=== PATIENT | male | born 1990 ===

== ENCOUNTER 2019-01-14 17:00 | Emergency (ER) | payer MEDICAID ==
[2019-01-14 17:05] VITALS: BMI 29.0
[2019-01-14 17:12] VITALS: TEMP 98.5
--- NOTE | 2019-01-14 17:19 | ED PDOC ---
Arrival/HPI - General Chief Complaint: Shortness Of Breath Time Seen by Provider: 01/14/19 17:08 Historian: Patient - History of Present Illness Narrative History of Present Illness (Text): 28 y/o male with PMH of asthma presents to the ED c/o asthma exacerbation x 3 days. Associated cough and sinus congestion. States this feels like his typical asthma exacerbations. Has been using his nebulizer with mild relief. Denies fever, chills, sore throat, ear pain, chest pain, back pain, abdominal pain, nausea, vomiting, or any other associated symptoms. Past Medical History - Provider Review Nursing Documentation Reviewed: Yes - Infectious Disease Hx of Infectious Diseases: None - Cardiac Hx Cardiac Disorders: No - Pulmonary Hx Respiratory Disorders: Yes Hx Asthma: Yes - Neurological Hx Neurological Disorder: No - HEENT Hx HEENT Disorder: No - Renal Hx Renal Disorder: No - Endocrine/Metabolic Hx Endocrine Disorders: No - Hematological/Oncological Hx Blood Disorders: No - Integumentary Hx Dermatological Disorder: No - Musculoskeletal/Rheumatological Hx Musculoskeletal Disorders: No - Gastrointestinal Hx Gastrointestinal Disorders: No - Genitourinary/Gynecological Hx Genitourinary Disorders: No - Psychiatric Hx Psychophysiologic Disorder: No Hx Substance Use: No - Anesthesia Hx Anesthesia: No Hx Anesthesia Reactions: No Hx Malignant Hyperthermia: No Family/Social History - Physician Review Nursing Documentation Reviewed: Yes Family/Social History: No Known Family HX Smoking Status: Current Some Days Smoker Hx Alcohol Use: Yes Frequency of alcohol use: Socially Hx Substance Use: No Allergies/Home Meds Allergies/Adverse Reactions: Allergies No Known Allergies Allergy (Verified 01/14/19 17:05) Review of Systems - Review of Systems Constitutional: Normal. absent: Fevers Eyes: Normal. absent: Vision Changes ENT: Normal, Sinus Congestion. absent: Sore Throat Respiratory: SOB, Cough, Sputum, Wheezing Cardiovascular: Normal. absent: Chest Pain, Palpitations Gastrointestinal: Normal. absent: Abdominal Pain, Nausea, Vomiting Musculoskeletal: Normal. absent: Back Pain, Neck Pain Skin: Normal. absent: Rash Neurological: Normal. absent: Headache, Dizziness Physical Exam Vital Signs Reviewed: Yes Vital Signs Temp Pulse Resp BP Pulse Ox 01/14/19 17:00 98.5 F 84 18 143/92 H 94 L Temp Pulse Resp BP Pulse Ox 98.5 F 89 17 141/87 99 01/14/19 17:00 01/14/19 19:18 01/14/19 19:18 01/14/19 19:18 01/14/19 19:18 Temperature: Afebrile Blood Pressure: Hypertensive Pulse: Regular Respiratory Rate: Normal Appearance: Positive for: Well-Appearing, Non-Toxic, Comfortable Pain Distress: None Mental Status: Positive for: Alert and Oriented X 3 - Systems Exam Head: Present: Atraumatic, Normocephalic Pupils: Present: PERRL Extroacular Muscles: Present: EOMI Conjunctiva: Present: Normal Mouth: Present: Moist Mucous Membranes Neck: Present: Normal Range of Motion. No: Meningeal Signs Respiratory/Chest: Present: Good Air Exchange, Wheezes (bilateral expiratory wheezing, diffuse). No: Respiratory Distress, Accessory Muscle Use Cardiovascular: Present: Regular Rate and Rhythm, Normal S1, S2 Back: Present: Normal Inspection. No: CVA Tenderness Upper Extremity: Present: Normal Inspection, Normal ROM, NORMAL PULSES, Neurovascularly Intact, Capillary Refill < 2s. No: Cyanosis, Edema, Temperature Abnormalties Lower Extremity: Present: Normal Inspection, NORMAL PULSES, Normal ROM, Neurovascularly Intact, Capillary Refill < 2 s. No: Edema, Temperature Abnormalties Neurological: Present: GCS=15, CN II-XII Intact, Speech Normal, Motor Func Grossly Intact, Normal Sensory Function, Gait Normal Skin: Present: Warm, Dry, Normal Color Psychiatric: Present: Alert, Oriented x 3, Normal Insight, Normal Concentration, Normal Affect, Normal Mood Medical Decision Making ED Course and Treatment: Initial Plan: * Prednisone * Duoneb x 3 * CXR CXR shows no active disease. Patient reports improvement in symptoms with medication. On repeat lung exam, expiratory wheezing is present but decreased. Improved air exchange noted. O2 saturation has improved. Pt comfortable with discharge home. Advised PMD followup. Diagnostic testing results and plan of care discussed with patient. Strict instructions given regarding prescription use, importance of followup, and signs/symptoms to return to ER including chest pain, fever, or any other new/worsening symptoms. Pt verbalized understanding of discussion. Patient is A&Ox3, ambulating with steady gait, with vital signs stable for discharge. - RAD Interpretation Radiology Orders: 01/14/19 17:17 CXR (PA/LAT) [CHEST TWO VIEWS (PA/LAT)] [RAD] Stat - Medication Orders Current Medication Orders: Albuterol/Ipratropium (Duoneb 3 Mg/0.5 Mg (3 Ml) Ud) 3 ml IH Q15M PAPI Stop: 01/14/19 18:01 Prednisone (Prednisone Tab) 60 mg PO STAT ONE Stop: 01/14/19 17:18 Disposition/Present on Arrival - Present on Arrival Any Indicators Present on Arrival: No History of DVT/PE: No History of Uncontrolled Diabetes: No Urinary Catheter: No History of Decub. Ulcer: No History Surgical Site Infection Following: None - Disposition Have Diagnosis and Disposition been Completed?: Yes Diagnosis: Asthma exacerbation, Lower resp. tract infection Disposition: HOME/ ROUTINE Disposition Time: 19:18 Patient Plan: Discharge Condition: IMPROVED Discharge Instructions (ExitCare): Asthma in Adults, Acute Bronchitis Additional Instructions: Prednisone 2 tabs daily for 4 more days Albuterol nebulizer every 6 hours as needed Zyrtec daily Azithromycin daily for 4 more days Rest, no strenuous activity Followup with primary doctor within 2 days Return to ER with any new/worsening symptoms Prescriptions: Albuterol 0.083% [Albuterol 0.083% Inhal Dot (2.5 mg/3 ml) UD] 2.5 mg IH Q6 #30 neb Azithromycin 250 mg PO DAILY #4 tab Cetirizine HCl [Zyrtec] 10 mg PO DAILY #30 tab.rapdis predniSONE [predniSONE Tab] 40 mg PO DAILY #8 tab Referrals: [facility] [place] - Follow up with primary Ela Hoover MD [Medical Doctor] - Follow up with primary Forms: [employer] [facility] ([place]), WORK NOTE
[2019-01-14] MEDS: Albuterol-Ipratrop 3 mg / 0.5 (3 ml) UD IH SCH ×3 (17:26→18:01)
[2019-01-14 19:06] VITALS: RESP 17
[2019-01-14 19:09] VITALS: BP 141/87
[2019-01-14 19:19] VITALS: PULSE 89; O2SAT 99
--- NOTE | 2019-01-15 08:49 | RAD ---
Date of service: 01/14/2019 HISTORY: productive cough COMPARISON: No prior. TECHNIQUE: Chest PA and lateral views FINDINGS: LUNGS: No active pulmonary disease. PLEURA: No significant pleural effusion identified. No pneumothorax apparent. CARDIOVASCULAR: No aortic atherosclerotic calcification present. Normal cardiac size. No pulmonary vascular congestion. OSSEOUS STRUCTURES: No significant abnormalities. VISUALIZED UPPER ABDOMEN: Normal. OTHER FINDINGS: None. IMPRESSION: No active disease.
== END 2019-01-14 19:36 | disposition home or self-care (01) ==
LOC: ED 17:00
DX: J45.901 Unspecified asthma with (acute) exacerbation (principal); J22 Unspecified acute lower respiratory infection; F17.210 Nicotine dependence, cigarettes, uncomplicated